=== PATIENT | female | born 1985 | race Caucasian/White ===

== ENCOUNTER 2023-01-09 22:11 | Emergency (ER) | payer MEDICAID ==
[~2023-01-09] VITALS: Ht 157.5 cm; Wt 59.6 kg
[~2023-01-09 22:11] MED LIST: ONDA4TAB12 PO
[2023-01-09 22:28] VITALS: BP 106/55; PULSE 69; RESP 18; TEMP 96.7; O2SAT 100
== END 2023-01-10 02:31 | disposition left against medical advice (07) ==
LOC: ER 22:12
DX: M54.59 Other low back pain (principal); Z53.21 Procedure and treatment not carried out due to patient leaving prior to being seen by health care provider
CPT/HCPCS: 99281

== ENCOUNTER 2023-05-01 20:53 | Emergency (ER) | payer MEDICAID ==
[~2023-05-01] VITALS: Ht 165.1 cm; Wt 75.0 kg
[2023-05-01 20:55] VITALS: BP 111/73; PULSE 95; RESP 20; TEMP 98.4; O2SAT 100
== END 2023-05-02 00:21 | disposition left against medical advice (07) ==
LOC: ER 20:53
DX: M54.50 Low back pain, unspecified (principal); Z53.21 Procedure and treatment not carried out due to patient leaving prior to being seen by health care provider
CPT/HCPCS: 99281

== ENCOUNTER 2023-10-12 14:32 | Observation (INO) | payer MEDICAID ==
[~2023-10-12] VITALS: Ht 157.5 cm; Wt 72.7 kg
[2023-10-12 15:26] LABS: BASOPHILS # (AUTO) 0.2 X10'3 (0-0.2); BASOPHILS % (AUTO) 1.9 % (0-1); EOSINOPHILS # (AUTO) 0.1 X10'3 (0-0.9); EOSINOPHILS % (AUTO) 0.6 % (0-6); HEMATOCRIT 40.2 % (35.0-45.0); HEMOGLOBIN 13.7 g/dl (12.0-16.0); LYMPHOCYTES # (AUTO) 1.4 X10'3 (1.1-4.8); LYMPHOCYTES % (AUTO) 14.6 % (21-51); MEAN CORPUSCULAR HEMOGLOBIN 29.7 PG (27.0-31.0); MEAN CORPUSCULAR VOLUME 87.5 FL (78-98); MEAN PLATELET VOLUME 8.8 FL (7.4-10.4); MONOCYTES # (AUTO) 0.5 X10'3 (0-0.9); MONOCYTES % (AUTO) 4.7 % (2-12); NEUTROPHILS # (AUTO) 7.6 X10'3 (1.8-7.7); NEUTROPHILS % (AUTO) 78.2 % (42-75); PLATELET COUNT 224 X10'3 (140-440); RED BLOOD COUNT 4.59 X10'6 (4.20-5.60); RED CELL DISTRIBUTION WIDTH 13.2 % (11.5-14.5); WHITE BLOOD COUNT 9.7 X10'3 (4.5-11.0)
[2023-10-12] MEDS ORDERED: GABA-530 PO (15:26)
[2023-10-12 15:29] LABS: HCG SERUM QL NEGATIVE
[2023-10-12 15:41] LABS: ALBUMIN 3.5 G/DL (3.4-5.0); ANION GAP 14 (8-16); BLOOD UREA NITROGEN 5 MG/DL (7-18); BUN/CREATININE RATIO 5.6 (10.0-20.0); CALCIUM 8.8 MG/DL (8.5-10.1); CHLORIDE 104 MMOL/L (99-107); CREATININE 0.89 MG/DL (0.40-0.90); GLUCOSE 97 MG/DL (70-104); LIPASE 40 U/L (16-77); POTASSIUM 3.4 MMOL/L (3.5-5.1); PRO BRAIN NATRIURETIC PEPTIDE 33 PG/ML (0-125); SODIUM 139 MMOL/L (135-145); TOTAL CARBON DIOXIDE 21.4 MMOL/L (24-32); eCRCL 69 ML/MIN; eGFR 72 ML/MIN
[2023-10-12 16:49] LABS: D-DIMER 0.34 MG/L FEU (0-0.50)
[2023-10-12] MEDS: morphine 4 MG/ML inj SYRINge IV ONE (16:50)
[2023-10-12] MEDS: diphenhydrAMINE 50 mg/ml inj IV ONE (18:08)
[2023-10-12] MEDS: famotidine/PF 10 mg/ml inj IV ONE (18:08)
[2023-10-12] MEDS: normal saline 1000ML IV soln IVB ONE (19:15)
[2023-10-12 21:03] LABS: BILIRUBIN,URINE SMALL (Neg); CLARITY,URINE SLIGHTLY CLOUDY (Clear); COLOR,URINE YELLOW (Yellow); GLUCOSE, URINE NEGATIVE (Neg); KETONES,URINE >=80 mg/dl (Neg); LEUKOCYTE ESTERASE ,URINE NEGATIVE (Neg); NITRITES, URINE NEGATIVE (Neg); OCCULT BLOOD,URINE NEGATIVE (Neg); PROTEIN,URINE NEGATIVE (Neg); UROBILINOGEN,URINE 0.2 E.U/dL (0.2-1.0)
[2023-10-12 21:06] LABS: UA COLLECTION TYPE CLN CATCH MIDSTREAM
[2023-10-12 21:10] LABS: BACTERIA,URINE FEW /HPF (Neg); RBC,URINE 0-2 /HPF (0-2); SQUAMOUS EPITHELIAL CELL,UR FEW /LPF (FEW); TRANSITIONAL EPI CELLS,URINE FEW /HPF; WBC,URINE 0-4 /HPF (0-4)
[2023-10-12] MEDS ORDERED: acetaminophen 325mg tablet PO PRN (21:10)
[2023-10-12] MEDS ORDERED: magnesium 2GM in 50ml NS 50 ML IV PRN (21:10)
[2023-10-12] MEDS ORDERED: magnesium Cl slow-release 64mg tablet PO PRN (21:10)
[2023-10-12] MEDS ORDERED: potassium Cl 20 mEq SR tablet PO PRN (21:10)
[2023-10-12] MEDS ORDERED: ondansetron/PF 4mg/2ml inj IV PRN (21:10)
[2023-10-12] MEDS ORDERED: potassium Cl 40MEQ/1/2NS 520ml 520 ML IV PRN (21:10)
[2023-10-12] MEDS ORDERED: magnesium 4gm in 100ml NS 100 ML IV PRN (21:10)
[2023-10-12 21:11] LABS: MUCUS STRANDS MODERATE /LPF (Neg)
[2023-10-12] MEDS ORDERED: aminophylline 250mg/10ml inj. IV PRN (21:15)
[2023-10-12] MEDS ORDERED: metoprolol tartrate 1mg/ml inj IV PRN (21:15)
[2023-10-12] MEDS ORDERED: PERFLUTREN PROTEIN-A MICROSPHR (Optison) 0.22 MG/ML 3ML VIAL IV PRN (21:15)
[2023-10-12 21:17] LABS: URINE AMPHETAMINE SCREEN NEGATIVE (Neg); URINE BARBITUATE SCREEN NEGATIVE (Neg); URINE BENZODIAZEPINES SCREEN NEGATIVE (Neg); URINE CANNABINOID SCREEN POSITIVE (Neg); URINE COCAINE SCREEN NEGATIVE (Neg); URINE METHADONE SCREEN NEGATIVE (Neg); URINE OPIATE SCREEN POSITIVE (Neg); URINE PHENCYCLIDINE SCREEN NEGATIVE (Neg)
[2023-10-12] MEDS ORDERED: iohexol 300mg/ml 100ml inj. ONE (22:03)
[2023-10-12] MEDS: potassium Cl 20 mEq SR tablet PO PRN (22:58)
[2023-10-12] MEDS: temazepam 15mg capsule PO PRN (22:58)
[2023-10-12] MEDS: nitroGLYCERIN 0.4mg SUBLingual tab SL PRN (22:58)
[2023-10-12 23:00] VITALS: BP 134/45; PULSE 61; RESP 19; TEMP 97.9; O2SAT 99
[2023-10-13] VITALS (12 sets, daily range): BP systolic 102–115; BP diastolic 55–64; PULSE 54–103; RESP 14–18; TEMP 97.3–98.1; O2SAT 93–100
[2023-10-13] MEDS: methylPREDNISolone sod succ 125mg/2ml vial IV ONE (02:02)
[2023-10-13] MEDS: ipratropium/albuterol 3ml nebule NEB SCH (03:00)
[2023-10-13 06:14] LABS: ANION GAP 6 (8-16); BLOOD UREA NITROGEN 4 MG/DL (7-18); BUN/CREATININE RATIO 5.6 (10.0-20.0); CHLORIDE 108 MMOL/L (99-107); CREATININE 0.71 MG/DL (0.40-0.90); GLUCOSE 88 MG/DL (70-104); MAGNESIUM 2.1 MG/DL (1.5-2.4); POTASSIUM 3.7 MMOL/L (3.5-5.1); SODIUM 138 MMOL/L (135-145); TOTAL CARBON DIOXIDE 23.9 MMOL/L (24-32); eCRCL 87 ML/MIN; eGFR > 90 ML/MIN
[2023-10-13 06:20] LABS: BASOPHILS % (AUTO) 0.5 % (0-1); EOSINOPHILS % (AUTO) 0.3 % (0-6); HEMATOCRIT 37.7 % (35.0-45.0); HEMOGLOBIN 12.7 g/dl (12.0-16.0); LYMPHOCYTES # (AUTO) 0.6 X10'3 (1.1-4.8); MEAN CORPUSCULAR HGB CONC 33.7 g/dL (33.0-36.5); MEAN CORPUSCULAR VOLUME 88.9 FL (78-98); MEAN PLATELET VOLUME 9.2 FL (7.4-10.4); MONOCYTES # (AUTO) 0.2 X10'3 (0-0.9); MONOCYTES % (AUTO) 3.4 % (2-12); NEUTROPHILS # (AUTO) 6.2 X10'3 (1.8-7.7); NEUTROPHILS % (AUTO) 87.8 % (42-75); PLATELET COUNT 172 X10'3 (140-440); RED BLOOD COUNT 4.24 X10'6 (4.20-5.60); RED CELL DISTRIBUTION WIDTH 13.2 % (11.5-14.5); WHITE BLOOD COUNT 7.1 X10'3 (4.5-11.0)
[2023-10-13] MEDS: K and/or MAG REPLACEMENT MC SCH (08:00)
[2023-10-13] MEDS: regadenoson 0.4mg/5ml syringe IV PRN (10:05)
[2023-10-13] MEDS ORDERED: ALBU90AE INH (16:19)
[2023-10-13] MEDS ORDERED: BUDE10.2 INH (16:19)
== END 2023-10-13 17:10 | disposition home or self-care (01) ==
LOC: ER 14:33 → INTOOBSV 21:15 → ED HOLD 21:15 → ORTHO 4S 22:30
PROVIDERS: ADMIT Internal Medicine; ATTEND Family Medicine
DX: M94.0 Chondrocostal junction syndrome [Tietze] (principal); J06.9 Acute upper respiratory infection, unspecified; J98.01 Acute bronchospasm; J40 Bronchitis, not specified as acute or chronic; K57.30 Diverticulosis of large intestine without perforation or abscess without bleeding; K76.0 Fatty (change of) liver, not elsewhere classified; N83.10 Corpus luteum cyst of ovary, unspecified side; R18.8 Other ascites; F17.210 Nicotine dependence, cigarettes, uncomplicated; Z79.51 Long term (current) use of inhaled steroids; Z79.899 Other long term (current) drug therapy
CPT/HCPCS: 36415; 71045; 74177; 78452; 80048; 80305; 81001; 83690; 83735; 83880; 84484; 84703; 85025; 85379; 87081; 93005; 93017; 93306; 94760; 96361; 96374; 96375; 99285; A6258; A9500; G0378; J1200; J2270; J2785; J2930; J3490; J7030; Q9967

== ENCOUNTER 2023-10-16 10:44 | Outpatient (CLI) | payer MEDICAID ==
[~2023-10-16 10:44] MED LIST changes: +ALBU90AE INH; +BUDE10.2 INH; +GABA-530 PO; -ONDA4TAB12 PO
== END 2023-10-16 23:59 | disposition home or self-care (01) ==
LOC: MRI 10:44
PROVIDERS: ATTEND Family Medicine
DX: M47.817 Spondylosis without myelopathy or radiculopathy, lumbosacral region (principal); M48.07 Spinal stenosis, lumbosacral region; M51.37 Other intervertebral disc degeneration, lumbosacral region; M54.50 Low back pain, unspecified
CPT/HCPCS: 72148